=== PATIENT | female | born 1995 | race Caucasian/White ===

== ENCOUNTER 2021-10-01 11:37 | Inpatient (IN) | payer MEDICAID ==
[~2021-10-01] VITALS: Ht 170.2 cm; Wt 145.8 kg
[~2021-10-01 11:37] MED LIST: ALBU8.5H17 IH; ONDA4TAB6 PO
[2021-10-01 14:04] LABS: BASOPHILS % (AUTO) 0.4 % (0-1); EOSINOPHILS % (AUTO) 0.3 % (0-6); HEMATOCRIT 36.8 % (35.0-45.0); HEMOGLOBIN 12.4 g/dl (12.0-16.0); LYMPHOCYTES # (AUTO) 1.9 X10'3 (1.1-4.8); MEAN CORPUSCULAR HGB CONC 33.7 g/dL (33.0-36.5); MEAN PLATELET VOLUME 7.9 FL (7.4-10.4); MONOCYTES # (AUTO) 0.6 X10'3 (0-0.9); MONOCYTES % (AUTO) 6.2 % (2-12); NEUTROPHILS # (AUTO) 6.5 X10'3 (1.8-7.7); NEUTROPHILS % (AUTO) 72.1 % (42-75); PLATELET COUNT 389 X10'3 (140-440); RED CELL DISTRIBUTION WIDTH 13.2 % (11.5-14.5)
[2021-10-01 14:09] LABS: ALANINE AMINOTRANSFERASE 28 U/L (12-78); ALBUMIN 3.7 G/DL (3.4-5.0); ALBUMIN/GLOBULIN RATIO 0.9 (1.1-1.5); ALKALINE PHOSPHATASE 57 IU/L (46-116); ANION GAP 10 (8-16); ASPARTATE AMINO TRANSFERASE 16 U/L (10-37); BILIRUBIN,TOTAL 0.8 MG/DL (0.1-1.0); BLOOD UREA NITROGEN 12 MG/DL (7-18); CALCIUM 9.2 MG/DL (8.5-10.1); CHLORIDE 105 MMOL/L (99-107); GLUCOSE 89 MG/DL (70-104); POTASSIUM 3.3 MMOL/L (3.5-5.1); SODIUM 142 MMOL/L (135-145); TOTAL CARBON DIOXIDE 27.1 MMOL/L (24-32); TOTAL PROTEIN 7.7 G/DL (6.4-8.2); eGFR 89 ML/MIN
[2021-10-01 14:56] LABS: URINE HCG NEGATIVE (NEG)
[2021-10-01 15:05] LABS: URINE AMPHETAMINE SCREEN NEGATIVE (Neg); URINE BARBITUATE SCREEN NEGATIVE (Neg); URINE BENZODIAZEPINES SCREEN NEGATIVE (Neg); URINE CANNABINOID SCREEN NEGATIVE (Neg); URINE COCAINE SCREEN NEGATIVE (Neg); URINE METHADONE SCREEN NEGATIVE (Neg); URINE OPIATE SCREEN NEGATIVE (Neg); URINE PHENCYCLIDINE SCREEN NEGATIVE (Neg)
[2021-10-01] MEDS ORDERED: ondansetron 4mg rapidly disintigrating tab PO ONE (15:25)
--- NOTE | 2021-10-01 15:35 | NUR ---
TELE MED REQUEST PUT IN @ 0889
[2021-10-01] MEDS ORDERED: NORMAL SALINE IV SCH ×2 (16:00→16:03)
[2021-10-01] MEDS ORDERED: ACYCLOVIR IV SCH ×2 (16:00→16:03)
[2021-10-01] MEDS ORDERED: iohexol 350MG/ML 100ml bottle IV ONE (16:05)
[2021-10-01] MEDS ORDERED: NORMAL SALINE IV ONE (16:05)
[2021-10-01] MEDS ORDERED: ACYCLOVIR IV ONE (16:05)
[2021-10-01] MEDS ORDERED: fentaNYL/PF 50MCG/1 ML 2ML syringe IV ONE (17:00)
[2021-10-01] MEDS ORDERED: NORE1PAT7 TOP (17:18)
[2021-10-01] MEDS ORDERED: magnesium 4gm in 100ml NS 100 ML IV PRN (17:40)
[2021-10-01] MEDS ORDERED: mag hydrox/Alum hydrox/simeth 30ml oral suspension PO PRN (17:40)
[2021-10-01] MEDS ORDERED: potassium Cl 20 mEq SR tablet PO PRN (17:40)
[2021-10-01] MEDS ORDERED: potassium CL 10mEq/100ml bag 100 ML IV PRN (17:40)
[2021-10-01] MEDS ORDERED: magnesium 2GM in 50ml NS 50 ML IV PRN (17:40)
[2021-10-01] MEDS ORDERED: proCHLORperazine 10 MG/2 ml inj IV ONE (18:20)
[2021-10-01 18:33] LABS: MAGNESIUM 2.2 MG/DL (1.5-2.4)
[2021-10-01] MEDS: docusate sod 100mg capsule PO SCH (20:00)
[2021-10-01] MEDS: K and/or MAG REPLACEMENT MC SCH (20:00)
[2021-10-01] MEDS: levetiracetam inj 1,000 MG in normal saline 100ml IV soln 100 ML IV SCH (20:00)
[2021-10-02 01:30] LABS: BASOPHILS % (AUTO) 0.4 % (0-1); EOSINOPHILS # (AUTO) 0.1 X10'3 (0-0.9); HEMATOCRIT 32.6 % (35.0-45.0); HEMOGLOBIN 11.2 g/dl (12.0-16.0); LYMPHOCYTES # (AUTO) 2.6 X10'3 (1.1-4.8); LYMPHOCYTES % (AUTO) 32.3 % (21-51); MEAN CORPUSCULAR HEMOGLOBIN 31.7 PG (27.0-31.0); MEAN CORPUSCULAR HGB CONC 34.4 g/dL (33.0-36.5); MEAN CORPUSCULAR VOLUME 92.4 FL (78-98); MEAN PLATELET VOLUME 8.2 FL (7.4-10.4); MONOCYTES # (AUTO) 0.6 X10'3 (0-0.9); MONOCYTES % (AUTO) 7.3 % (2-12); NEUTROPHILS # (AUTO) 4.8 X10'3 (1.8-7.7); PLATELET COUNT 333 X10'3 (140-440); RED BLOOD COUNT 3.52 X10'6 (4.20-5.60); RED CELL DISTRIBUTION WIDTH 12.8 % (11.5-14.5); WHITE BLOOD COUNT 8.2 X10'3 (4.5-11.0)
[2021-10-02 01:43] LABS: ALANINE AMINOTRANSFERASE 23 U/L (12-78); ALBUMIN 3.2 G/DL (3.4-5.0); ALBUMIN/GLOBULIN RATIO 0.9 (1.1-1.5); ALKALINE PHOSPHATASE 51 IU/L (46-116); ANION GAP 12 (8-16); ASPARTATE AMINO TRANSFERASE 16 U/L (10-37); BLOOD UREA NITROGEN 12 MG/DL (7-18); BUN/CREATININE RATIO 14.8 (6.6-38.0); CALCIUM 8.4 MG/DL (8.5-10.1); CHLORIDE 106 MMOL/L (99-107); CHOLESTEROL 190 MG/DL (0-200); CREATININE 0.81 MG/DL (0.40-0.90); GLUCOSE 94 MG/DL (70-104); HDL CHOLESTEROL 94 MG/DL (35-60); LDL CHOLESTEROL 81 MG/DL (50-100); MAGNESIUM 2.1 MG/DL (1.5-2.4); POTASSIUM 3.3 MMOL/L (3.5-5.1); SODIUM 140 MMOL/L (135-145); TOTAL CARBON DIOXIDE 22.3 MMOL/L (24-32); TOTAL PROTEIN 6.7 G/DL (6.4-8.2); TRIGLYCERIDES 142 MG/DL (20-135); eGFR 88 ML/MIN
[2021-10-02] MEDS: NORMAL SALINE IV SCH ×3 (02:48→17:58)
[2021-10-02] MEDS: ACYCLOVIR IV SCH ×3 (02:48→17:58)
[2021-10-02] MEDS: acetaminophen 325mg tablet PO PRN ×2 (04:15→15:27)
[2021-10-02] MEDS: ondansetron/PF 4mg/2ml inj IV PRN (04:16)
--- NOTE | 2021-10-02 07:18 | NUR ---
paged dr dickey to verify the keppra medication and also patient tele neuro notes which states that patient need to be transfered .
--- NOTE | 2021-10-02 07:36 | NUR ---
repaged dr dickey at this time.
[2021-10-02] MEDS: levetiracetam inj 1,000 MG in normal saline 100ml IV soln 100 ML IV SCH ×2 (08:00→19:29)
[2021-10-02] MEDS: K and/or MAG REPLACEMENT MC SCH ×2 (08:00→20:00)
--- NOTE | 2021-10-02 08:50 | NUR ---
SPOKE WITH DR PACK REGARDING KEPPRA ORDER. TO REVIEW CHART, RN TO HOLD MEDICATION AT THIS TIME (SEE EMAR).
--- NOTE | 2021-10-02 09:08 | NUR ---
SPOKE TO DR THOMAS REGARDING PT STATUS AND ALSO DISCUSSED THE REPORT FROM JAROD HARDEN WHICH SUGGESTED PT NEED TO BE TRANSFERED OUT ,INFORMED THE PROVIDER THAT PT IS C/O MIGRAINE HEADACHE ,PT HAS HX OF MIGRANINE AND REQUESTING FOR COCKTAIL FOR HEADACHE ,ALSO INFORME DTHAT PT HAS A BED UPSTAIRS AND ALL THE TEST RESULT IS RESULTED, PER MD GIVE ATIVIAN 0.5 MG OF ATIVIAN IV ONCE,HALODOL 5 MG IM ONCE AND BENEDRYL 25 MG IV ONCE AND ALSO ADMIN THE KEPPRA.
[2021-10-02] MEDS ORDERED: diphenhydrAMINE 50 mg/ml inj IV ONE (09:15)
[2021-10-02] MEDS ORDERED: LORazepam 2 mg/ml vial IV ONE (09:15)
[2021-10-02] MEDS ORDERED: haloperidol lactate 5mg/ml inj IM ONE (09:15)
[2021-10-02] MEDS ORDERED: levetiracetam inj 1,000 MG in normal saline 100ml IV soln 100 ML IV SCH (10:00)
[2021-10-02 10:34] VITALS: BP 83/38
[2021-10-02 10:40] VITALS: BP 86/43
[2021-10-02 10:52] VITALS: BP 91/56
[2021-10-02 14:00] VITALS: BP 97/50
[2021-10-02] MEDS: potassium Cl 20 mEq SR tablet PO PRN ×2 (15:26→19:31)
[2021-10-02] MEDS: docusate sod 100mg capsule PO SCH ×2 (15:27→20:00)
--- NOTE | 2021-10-02 16:30 | NUR ---
PAGER ID: [phone] MESSAGE: [phone]. Patient would like to know if she will be discharged home today or if you still plan on doing lumbar puncture. Also, patient is requesting stronger form of pain medication for headache. Anastasiya TONEY [id number]
[2021-10-02] MEDS: normal saline 1000ml 1,000 ML IV SCH (17:58)
[2021-10-02 18:43] LABS: PARTIAL THROMBOPLASTIN TIME 27 SECONDS (22-32)
--- NOTE | 2021-10-02 18:43 | NUR ---
Problems reprioritized. Patient report given, questions answered & plan of care reviewed with Claudy TONEY.
--- NOTE | 2021-10-02 18:44 | NUR ---
Patient a&ox4. VSS. Complains of constant headache pain, relieved with Tylenol. [place] ordered, patient says she has no allergic reaction to norco. Swallowing without difficulty. Turns independently. Skin is intact. Plan of care reviewed with patient.
--- NOTE | 2021-10-02 18:47 | NUR ---
Patient in room MED 307. I have received report from Anastasiya TONEY and had the opportunity to ask questions and assume patient care.
[2021-10-02 19:05] VITALS: BP 120/57
[2021-10-02] MEDS: HYDROcodone/acetaminophen 5mg/325mg tablet PO PRN (19:33)
[2021-10-02 22:15] VITALS: BP 92/55
[2021-10-03] MEDS: NORMAL SALINE IV SCH ×3 (01:34→17:34)
[2021-10-03] MEDS: ACYCLOVIR IV SCH ×3 (01:34→17:34)
[2021-10-03] MEDS: HYDROcodone/acetaminophen 5mg/325mg tablet PO PRN ×5 (01:35→22:59)
[2021-10-03 02:00] VITALS: BP 101/56
[2021-10-03] MEDS: normal saline 1000ml 1,000 ML IV SCH ×3 (03:45→20:21)
[2021-10-03] MEDS: potassium Cl 20 mEq SR tablet PO PRN (03:45)
[2021-10-03 06:00] VITALS: BP 91/50
--- NOTE | 2021-10-03 06:29 | NUR ---
Problems reprioritized. Patient report given, questions answered & plan of care reviewed with Anastasiya TONEY.
--- NOTE | 2021-10-03 06:59 | NUR ---
PAGER ID: [phone] MESSAGE: [phone]. Patient is requesting a stronger form of pain medication, or something that will act more quickly. She says she has taken Toradol before and did not have allergic reactions. Anastasiya TONEY [id number]
[2021-10-03 07:18] LABS: BASOPHILS % (AUTO) 0.5 % (0-1); EOSINOPHILS # (AUTO) 0.1 X10'3 (0-0.9); EOSINOPHILS % (AUTO) 1.6 % (0-6); HEMATOCRIT 30.2 % (35.0-45.0); HEMOGLOBIN 10.3 g/dl (12.0-16.0); LYMPHOCYTES % (AUTO) 33.9 % (21-51); MEAN CORPUSCULAR HEMOGLOBIN 31.8 PG (27.0-31.0); MEAN CORPUSCULAR HGB CONC 34.3 g/dL (33.0-36.5); MEAN CORPUSCULAR VOLUME 92.7 FL (78-98); MONOCYTES # (AUTO) 0.5 X10'3 (0-0.9); NEUTROPHILS # (AUTO) 3.4 X10'3 (1.8-7.7); PLATELET COUNT 286 X10'3 (140-440); RED BLOOD COUNT 3.26 X10'6 (4.20-5.60); RED CELL DISTRIBUTION WIDTH 12.7 % (11.5-14.5)
[2021-10-03 07:31] LABS: ALANINE AMINOTRANSFERASE 20 U/L (12-78); ALBUMIN 2.9 G/DL (3.4-5.0); ALBUMIN/GLOBULIN RATIO 0.9 (1.1-1.5); ALKALINE PHOSPHATASE 48 IU/L (46-116); ANION GAP 8 (8-16); ASPARTATE AMINO TRANSFERASE 13 U/L (10-37); BILIRUBIN,TOTAL 0.6 MG/DL (0.1-1.0); BLOOD UREA NITROGEN 11 MG/DL (7-18); BUN/CREATININE RATIO 15.7 (6.6-38.0); CALCIUM 8.3 MG/DL (8.5-10.1); CHLORIDE 107 MMOL/L (99-107); GLUCOSE 84 MG/DL (70-104); POTASSIUM 4.3 MMOL/L (3.5-5.1); SODIUM 137 MMOL/L (135-145); TOTAL CARBON DIOXIDE 22.1 MMOL/L (24-32); TOTAL PROTEIN 6.2 G/DL (6.4-8.2); eGFR > 90 ML/MIN
[2021-10-03] MEDS: K and/or MAG REPLACEMENT MC SCH ×2 (08:00→20:00)
[2021-10-03] MEDS: docusate sod 100mg capsule PO SCH ×2 (08:11→20:22)
[2021-10-03] MEDS: levetiracetam inj 1,000 MG in normal saline 100ml IV soln 100 ML IV SCH ×2 (08:12→20:22)
[2021-10-03] MEDS: ketorolac trometh. 30mg/ml inj. IV PRN ×3 (08:12→20:22)
[2021-10-03] MEDS ORDERED: LIDOcaine 1% (10mg/ml)w/preservative injection 20ml MDV SQ ONE (09:40)
[2021-10-03 10:00] VITALS: BP 98/59
--- NOTE | 2021-10-03 13:12 | NUR ---
PAGER ID: [phone] MESSAGE: [phone]. Patient is reporting right upper arm numbness. She does say she received IM injection in ED, I believe it was Haldol. She is able to move arm and there are no other significant changes. Anastasiya [id number]
--- NOTE | 2021-10-03 15:22 | NUR ---
Patient in procedure for 1400 vitals
[2021-10-03 16:16] LABS: GLUCOSE,CSF 52 MG/DL (40-75); TOTAL PROTEIN,CSF 32 MG/DL (15-45)
[2021-10-03 16:56] LABS: APPEARANCE,CSF CLEAR
[2021-10-03 16:57] LABS: CSF RBC 1 /CU MM (0); CSF SUPERNATANT COLOR COLORLESS; CSF VOLUME 13.5 ML; CSF WBC CT 0 /CU MM (0-5); TUBE# COUNTED 4
[2021-10-03 16:58] LABS: APPEARANCE,CSF CLEAR; CSF RBC 3 /CU MM (0); CSF SUPERNATANT COLOR COLORLESS; CSF VOLUME 13.5 ML; CSF WBC CT 0 /CU MM (0-5); TUBE# COUNTED 1
--- NOTE | 2021-10-03 17:44 | NUR ---
Patient is a&ox4. VSS. Complains of constant headache pain, relieved with prn norco and toradol. Swallows without difficulty. Taken for lumbar puncture. Patient educated on laying flat with HOB no greater than 15 degrees for 4 hours, although she says she was told by MD it only had to be 2 hours. EEG done. Patient was able to ambulate to bathroom/gurney with sba. Plan of care reviewed with patient and family at bedside.
[2021-10-03 18:06] VITALS: BP 110/68
--- NOTE | 2021-10-03 18:15 | NUR ---
Problems reprioritized. Patient report given, questions answered & plan of care reviewed with Willy TONEY. Addendum: 10/03/21 at 1817 by Anastasiya Vidal RN Report given to Claudy TONEY, not Willy.
--- NOTE | 2021-10-03 18:21 | NUR ---
Patient in room MED 307. I have received report from Anastasiya TONEY and had the opportunity to ask questions and assume patient care.
[2021-10-03 22:08] VITALS: BP 98/53
[2021-10-04 02:11] VITALS: BP 87/47
[2021-10-04] MEDS: ketorolac trometh. 30mg/ml inj. IV PRN ×4 (02:27→23:18)
[2021-10-04] MEDS: ACYCLOVIR IV SCH ×2 (02:27→10:04)
[2021-10-04] MEDS: NORMAL SALINE IV SCH ×2 (02:27→10:04)
[2021-10-04 06:30] VITALS: BP 93/50
[2021-10-04 06:37] LABS: BASOPHILS % (AUTO) 0.3 % (0-1); EOSINOPHILS # (AUTO) 0.1 X10'3 (0-0.9); EOSINOPHILS % (AUTO) 2.2 % (0-6); HEMATOCRIT 29.8 % (35.0-45.0); HEMOGLOBIN 10.3 g/dl (12.0-16.0); LYMPHOCYTES # (AUTO) 2.1 X10'3 (1.1-4.8); LYMPHOCYTES % (AUTO) 38.5 % (21-51); MEAN CORPUSCULAR HEMOGLOBIN 32.3 PG (27.0-31.0); MEAN CORPUSCULAR HGB CONC 34.6 g/dL (33.0-36.5); MEAN CORPUSCULAR VOLUME 93.3 FL (78-98); MEAN PLATELET VOLUME 8.1 FL (7.4-10.4); MONOCYTES # (AUTO) 0.4 X10'3 (0-0.9); MONOCYTES % (AUTO) 6.6 % (2-12); NEUTROPHILS # (AUTO) 2.8 X10'3 (1.8-7.7); NEUTROPHILS % (AUTO) 52.4 % (42-75); PLATELET COUNT 274 X10'3 (140-440); RED BLOOD COUNT 3.19 X10'6 (4.20-5.60); RED CELL DISTRIBUTION WIDTH 12.8 % (11.5-14.5); WHITE BLOOD COUNT 5.4 X10'3 (4.5-11.0)
--- NOTE | 2021-10-04 06:40 | NUR ---
Patient in room MED 307. I have received report from DAWNA Loco and had the opportunity to ask questions and assume patient care.
[2021-10-04 06:49] LABS: ALANINE AMINOTRANSFERASE 15 U/L (12-78); ALBUMIN 2.9 G/DL (3.4-5.0); ALBUMIN/GLOBULIN RATIO 0.9 (1.1-1.5); ALKALINE PHOSPHATASE 47 IU/L (46-116); ANION GAP 6 (8-16); ASPARTATE AMINO TRANSFERASE 13 U/L (10-37); BILIRUBIN,TOTAL 0.7 MG/DL (0.1-1.0); BLOOD UREA NITROGEN 12 MG/DL (7-18); CALCIUM 8.3 MG/DL (8.5-10.1); CHLORIDE 107 MMOL/L (99-107); GLUCOSE 82 MG/DL (70-104); MAGNESIUM 1.9 MG/DL (1.5-2.4); SODIUM 137 MMOL/L (135-145); TOTAL CARBON DIOXIDE 23.8 MMOL/L (24-32); TOTAL PROTEIN 6.3 G/DL (6.4-8.2); eGFR > 90 ML/MIN
--- NOTE | 2021-10-04 06:55 | NUR ---
Problems reprioritized. Patient report given, questions answered & plan of care reviewed with Kirsten RN.
[2021-10-04] MEDS: K and/or MAG REPLACEMENT MC SCH ×2 (08:00→20:00)
[2021-10-04] MEDS: normal saline 1000ml 1,000 ML IV SCH ×2 (08:58→21:00)
[2021-10-04] MEDS: docusate sod 100mg capsule PO SCH ×2 (08:58→21:00)
[2021-10-04] MEDS: levetiracetam inj 1,000 MG in normal saline 100ml IV soln 100 ML IV SCH (09:00)
[2021-10-04] MEDS ORDERED: magnesium hydroxide 30ml (MOM) UD suspension PO ONE (09:05)
[2021-10-04 10:00] VITALS: BP 104/60
[2021-10-04] MEDS ORDERED: magnesium hydroxide 30ml (MOM) UD suspension PO PRN (10:00)
[2021-10-04] MEDS ORDERED: bisacodyl 10mg suppository rectal RC PRN (10:00)
[2021-10-04] MEDS: HYDROcodone/acetaminophen 5mg/325mg tablet PO PRN ×2 (10:03→17:50)
[2021-10-04] MEDS: SUMAtriptan succ. 6 MG/0.5ml vial SQ PRN ×2 (12:41→15:10)
[2021-10-04] MEDS ORDERED: ketorolac trometh. 30mg/ml inj. IV ONE (13:20)
[2021-10-04] MEDS: LORazepam 0.5 MG tablet PO PRN ×2 (13:30→21:00)
[2021-10-04] MEDS ORDERED: ondansetron/PF 4mg/2ml inj IV PRN (15:00)
[2021-10-04] MEDS ORDERED: temazepam 15mg capsule PO PRN (15:00)
[2021-10-04] MEDS: ondansetron/PF 4mg/2ml inj IV PRN (15:08)
[2021-10-04 15:40] VITALS: BP 105/76
[2021-10-04] MEDS ORDERED: mag hydrox/Alum hydrox/simeth 30ml oral suspension PO PRN (17:45)
[2021-10-04 18:20] VITALS: BP 108/75
--- NOTE | 2021-10-04 18:30 | NUR ---
Problems reprioritized. Patient report given, questions answered & plan of care reviewed with DAWNA Loco.
--- NOTE | 2021-10-04 18:57 | NUR ---
Patient in room MED 307. I have received report from Kirsten TONEY and had the opportunity to ask questions and assume patient care.
[2021-10-04] MEDS ORDERED: levetiracetam 250mg tablet PO SCH (20:00)
[2021-10-04] MEDS ORDERED: nortriptyline 10mg capsule PO SCH (21:00)
[2021-10-04 22:00] VITALS: BP 102/65
[2021-10-05 02:00] VITALS: BP 92/50
[2021-10-05] MEDS: HYDROcodone/acetaminophen 5mg/325mg tablet PO PRN ×4 (03:02→20:16)
[2021-10-05] MEDS: normal saline 1000ml 1,000 ML IV SCH (05:52)
[2021-10-05] MEDS: ketorolac trometh. 30mg/ml inj. IV PRN ×3 (06:16→18:06)
[2021-10-05 06:30] VITALS: BP 102/56
--- NOTE | 2021-10-05 06:40 | NUR ---
Patient in room MED 307. I have received report from DAWNA Loco and had the opportunity to ask questions and assume patient care.
[2021-10-05 06:46] LABS: BASOPHILS % (AUTO) 0.4 % (0-1); EOSINOPHILS # (AUTO) 0.1 X10'3 (0-0.9); EOSINOPHILS % (AUTO) 2.3 % (0-6); HEMOGLOBIN 10.6 g/dl (12.0-16.0); LYMPHOCYTES # (AUTO) 2.2 X10'3 (1.1-4.8); LYMPHOCYTES % (AUTO) 38.9 % (21-51); MEAN CORPUSCULAR HEMOGLOBIN 32.4 PG (27.0-31.0); MEAN CORPUSCULAR HGB CONC 35.2 g/dL (33.0-36.5); MEAN PLATELET VOLUME 8.3 FL (7.4-10.4); MONOCYTES # (AUTO) 0.4 X10'3 (0-0.9); MONOCYTES % (AUTO) 6.8 % (2-12); NEUTROPHILS % (AUTO) 51.6 % (42-75); PLATELET COUNT 269 X10'3 (140-440); RED BLOOD COUNT 3.26 X10'6 (4.20-5.60); RED CELL DISTRIBUTION WIDTH 12.6 % (11.5-14.5); WHITE BLOOD COUNT 5.7 X10'3 (4.5-11.0)
--- NOTE | 2021-10-05 06:56 | NUR ---
Problems reprioritized. Patient report given, questions answered & plan of care reviewed with Kirsten RN.
[2021-10-05 07:08] LABS: ALANINE AMINOTRANSFERASE 21 U/L (12-78); ALBUMIN/GLOBULIN RATIO 0.8 (1.1-1.5); ALKALINE PHOSPHATASE 47 IU/L (46-116); ANION GAP 10 (8-16); ASPARTATE AMINO TRANSFERASE 17 U/L (10-37); BILIRUBIN,TOTAL 0.6 MG/DL (0.1-1.0); BLOOD UREA NITROGEN 14 MG/DL (7-18); BUN/CREATININE RATIO 20.3 (6.6-38.0); CALCIUM 8.2 MG/DL (8.5-10.1); CHLORIDE 106 MMOL/L (99-107); CREATININE 0.69 MG/DL (0.40-0.90); GLUCOSE 78 MG/DL (70-104); MAGNESIUM 2.2 MG/DL (1.5-2.4); POTASSIUM 4.3 MMOL/L (3.5-5.1); SODIUM 138 MMOL/L (135-145); TOTAL CARBON DIOXIDE 21.7 MMOL/L (24-32); TOTAL PROTEIN 6.6 G/DL (6.4-8.2); eGFR > 90 ML/MIN
[2021-10-05] MEDS: K and/or MAG REPLACEMENT MC SCH ×2 (08:00→20:00)
[2021-10-05] MEDS: docusate sod 100mg capsule PO SCH ×2 (09:42→20:14)
[2021-10-05 10:00] VITALS: BP 108/68
[2021-10-05 14:00] VITALS: BP 103/71
[2021-10-05] MEDS: ondansetron/PF 4mg/2ml inj IV PRN (14:06)
[2021-10-05] MEDS: methylPREDNISolone sod succ 125mg/2ml vial IV SCH (14:16)
[2021-10-05 18:00] VITALS: BP 100/58
--- NOTE | 2021-10-05 19:10 | NUR ---
Problems reprioritized. Patient report given, questions answered & plan of care reviewed with DAWNA Mariee.
[2021-10-05] MEDS: amitriptyline 25mg tablet PO SCH (20:15)
[2021-10-05] MEDS: LORazepam 0.5 MG tablet PO PRN (21:28)
[2021-10-05 22:00] VITALS: BP 97/54
[2021-10-06] MEDS: ketorolac trometh. 30mg/ml inj. IV PRN ×4 (00:05→19:41)
--- NOTE | 2021-10-06 01:00 | NUR ---
Report called, pt notified of plan of care and the pending transfer to surgical unit. Pt refused a this time stated that she wants to sleep and asked why since she is being transferred out of the hospital tomorrow. will come back to asses her readyness
--- NOTE | 2021-10-06 01:30 | NUR ---
Pt transferred via bed to room 355B, Pt gathered her brlongins and placed on the bed by pt before transfer by 2 RNs. Bed placed in the room and nurse from floor at bedside
--- NOTE | 2021-10-06 01:45 | NUR ---
Pt asked to come jignesh in a few minutes. She is getting herself ready.
--- NOTE | 2021-10-06 01:46 | NUR ---
Pt brought to room 355B via bed. call light in reach, pt c/o migraine, refuses assessment or any interventions at this time. Pt did not want to be transferred at night. belongings brought over by Rn in large backpack and placed on bedside table. pt requests all lights off and door shut. Addendum: 10/06/21 at 0149 by Titus Sevilla RN Amended: Links added.
[2021-10-06] MEDS: HYDROcodone/acetaminophen 5mg/325mg tablet PO PRN ×3 (02:01→09:44)
[2021-10-06] MEDS: LORazepam 0.5 MG tablet PO PRN (02:02)
[2021-10-06 02:13] VITALS: BP 99/44
[2021-10-06 05:46] LABS: BASOPHILS % (AUTO) 0.3 % (0-1); EOSINOPHILS % (AUTO) 0 % (0-6); HEMATOCRIT 34.4 % (35.0-45.0); HEMOGLOBIN 11.8 g/dl (12.0-16.0); LYMPHOCYTES % (AUTO) 10.9 % (21-51); MEAN CORPUSCULAR HEMOGLOBIN 31.8 PG (27.0-31.0); MEAN CORPUSCULAR HGB CONC 34.3 g/dL (33.0-36.5); MEAN CORPUSCULAR VOLUME 92.7 FL (78-98); MEAN PLATELET VOLUME 8.9 FL (7.4-10.4); MONOCYTES # (AUTO) 0.2 X10'3 (0-0.9); MONOCYTES % (AUTO) 1.8 % (2-12); NEUTROPHILS # (AUTO) 7.7 X10'3 (1.8-7.7); PLATELET COUNT 324 X10'3 (140-440); RED BLOOD COUNT 3.71 X10'6 (4.20-5.60); RED CELL DISTRIBUTION WIDTH 12.4 % (11.5-14.5); WHITE BLOOD COUNT 8.9 X10'3 (4.5-11.0)
--- NOTE | 2021-10-06 06:02 | NUR ---
TORODAL AND NORCO GIVEN FOR MIGRAINE. Addendum: 10/06/21 at 0605 by Titus Sevilla RN Amended: Links added.
[2021-10-06 06:23] LABS: ALANINE AMINOTRANSFERASE 25 U/L (12-78); ALBUMIN 3.4 G/DL (3.4-5.0); ALBUMIN/GLOBULIN RATIO 0.9 (1.1-1.5); ALKALINE PHOSPHATASE 53 IU/L (46-116); ANION GAP 11 (8-16); ASPARTATE AMINO TRANSFERASE 16 U/L (10-37); BILIRUBIN,TOTAL 0.6 MG/DL (0.1-1.0); BLOOD UREA NITROGEN 14 MG/DL (7-18); BUN/CREATININE RATIO 20.3 (6.6-38.0); CHLORIDE 103 MMOL/L (99-107); CREATININE 0.69 MG/DL (0.40-0.90); GLUCOSE 122 MG/DL (70-104); POTASSIUM 4.2 MMOL/L (3.5-5.1); SODIUM 136 MMOL/L (135-145); TOTAL CARBON DIOXIDE 21.9 MMOL/L (24-32); TOTAL PROTEIN 7.3 G/DL (6.4-8.2); eGFR > 90 ML/MIN
--- NOTE | 2021-10-06 06:25 | NUR ---
Problems reprioritized. Patient report given, questions answered & plan of care reviewed with MARIAM TONEY. Addendum: 10/06/21 at 0626 by Titus Sevilla RN Amended: Links added.
[2021-10-06 07:34] VITALS: BP 86/45
[2021-10-06] MEDS: K and/or MAG REPLACEMENT MC SCH ×2 (07:47→19:42)
[2021-10-06] MEDS: docusate sod 100mg capsule PO SCH ×2 (07:55→19:42)
[2021-10-06] MEDS: methylPREDNISolone sod succ 125mg/2ml vial IV SCH (07:55)
[2021-10-06 12:09] VITALS: BP 113/16
[2021-10-06] MEDS: oxyCODONE/APAP 5-325mg tablet PO PRN ×2 (13:09→18:17)
--- NOTE | 2021-10-06 14:14 | NUR ---
Initial: Pt admitted w/ 3-day history of left-sided upper and lower extremity paresis and paresthesias as well as slurred speech per EMR. Per Neurologist consultation the pt is recommended to be transferred to a higher level of neurology care. Pt currently on Regular diet and able to feed self w/ mostly 75-100% intake of meals meeting needs at this time. Pt noted to be complaining of migraines. [facility] 10/04 receiving routine colace. No nutrition intervention implemented at this time, will continue to monitor. Recs: 1. Continue Regular diet as tolerated 2. Bowel care per rx 3. Weekly wts Addendum: 10/06/21 at [address] Amended: Links added.
[2021-10-06] MEDS ORDERED: METH125V10 IV (15:58)
[2021-10-06] MEDS ORDERED: PER5325T PO (15:58)
[2021-10-06] MEDS ORDERED: HYDR-3964 PO (15:58)
[2021-10-06] MEDS ORDERED: AMIT25TA9 PO (15:58)
[2021-10-06] MEDS ORDERED: KETO30VI IV (15:58)
--- NOTE | 2021-10-06 17:25 | NUR ---
Spoke with Puneet at [facility]. He is aware of the negative covid test that has been faxed through and he will be calling back to the floor once there is an assignment for this patient. Addendum: 10/06/21 at 1727 by Maren Bowie RN phone number [phone]
--- NOTE | 2021-10-06 18:19 | NUR ---
Problems reprioritized. Patient report given, questions answered & plan of care reviewed with DAWNA Bravo.
[2021-10-06] MEDS: ondansetron/PF 4mg/2ml inj IV PRN (19:16)
[2021-10-06 20:00] VITALS: BP 107/57
[2021-10-06] MEDS: amitriptyline 25mg tablet PO SCH (20:58)
--- NOTE | 2021-10-06 21:45 | NUR ---
ATTEMPTING TO MAKE TRANSFER ARRANGEMENTS TO [facility] IN [place]. [facility] CALLED FIRST: NO AMBULANCE AVAILABLE TONIGHT. [facility] THEN NOTIFIED: NO GROUND AVAILABLE TONIGHT. CALLED [facility]: DECLINED DUE TO WEATHER. RE-CALLED [facility]: DECLINED DUE TO WEATHER. DID MAKE ARRANGEMENTS FOR GROUND TRANSPORT IN THE MORNING: TENTATIVE TIME OF 0800. CALLED THE NURSING SOLID WASTE ANALYST APPROVED REACHING OUT TO OUT OF AREA AIR TRANSPORT TO ATTEMPT TO GET PT TRANSFERRED TONIGHT. [facility] [place] CALLED: UNAVAILABLE/DECLINED TONIGHT. [facility] CALLED BACK: THE BRIM CUTTER WILL BE RE-EVALUATING THE WEATHER THROUGHOUT THE NIGHT TO SEE IF PT CAN BE TRANSFERRED TONIGHT. [facility] NOTIFIED OF POSSIBLE TRANSPORT COMPLIANCE INVESTIGATOR IN THE MORNING. AWAITING INFORMATION TO SEE IF PT WILL BE ABLE TO KEEP HER BED.
[2021-10-06] MEDS ORDERED: HYDROmorphone inj. 0.5 MG/0.5 ML DISP.SYRIN IV PRN (22:20)
[2021-10-06] MEDS ORDERED: ondansetron/PF 4mg/2ml inj IV PRN (22:20)
[2021-10-06 23:00] VITALS: BP 112/64
--- NOTE | 2021-10-06 23:00 | NUR ---
[facility] HERE FOR BONE WORKER. ALLREADY CALLED REPORT TO [facility]. REPORT GIVEN TO RE[facility]. PT READY FOR TRANSPORT.
[2021-10-07] MEDS ORDERED: methylPREDNISolone sod succ 125mg/2ml vial IV SCH (08:00)
[2021-10-07] MEDS ORDERED: predniSONE 20 mg tablet PO SCH (08:30)
[2021-10-08] MEDS ORDERED: NORELGESTROMIN TP SCH (10:00)
[2021-10-08] MEDS ORDERED: ETHIN ESTRADIOL TP SCH (10:00)
== END 2021-10-06 23:30 | disposition short-term general hospital (02) | DRG 44 ==
LOC: ER 11:38 → ED HOLD 17:44 → MED 3N 10-02 10:00 → SUR 3N 10-06 01:43
PROVIDERS: ADMIT Family Medicine; ATTEND Family Medicine
PROC: 009U3ZZ Drainage of Spinal Canal, Percutaneous Approach (ICD-10-PCS; principal; 2021-10-03)
PROC: B01B1ZZ Fluoroscopy of Spinal Cord using Low Osmolar Contrast (ICD-10-PCS; 2021-10-03)
PROC: 4A10X4Z Monitoring of Central Nervous Electrical Activity, External Approach (ICD-10-PCS; 2021-10-03)
DX: I60.9 Nontraumatic subarachnoid hemorrhage, unspecified (principal); R56.9 Unspecified convulsions; D64.9 Anemia, unspecified; E87.6 Hypokalemia; G43.909 Migraine, unspecified, not intractable, without status migrainosus; Z20.822 Contact with and (suspected) exposure to COVID-19; G62.9 Polyneuropathy, unspecified; R47.1 Dysarthria and anarthria; F41.1 Generalized anxiety disorder; R00.2 Palpitations; Z80.8 Family history of malignant neoplasm of other organs or systems; Z82.0 Family history of epilepsy and other diseases of the nervous system; Z83.3 Family history of diabetes mellitus; Z88.5 Allergy status to narcotic agent
CPT/HCPCS: 36415; 70450; 70496; 70498; 70544; 70551; 71045; 72141; 80053; 80061; 80305; 81025; 82945; 83605; 83735; 84145; 84157; 84443; 85025; 85610; 85651; 85730; 87015; 87070; 87081; 87635; 89051; 92508; 92616; 95816; 96372; 96374; 96375; 97116; 97163; 97530; 99291; G0378; J0133; J0780; J1170; J1200; J1630; J1885; J1953; J2060; J2405; J2930; J3010; J3030; J3490; J7030; Q9967

== ENCOUNTER 2022-01-26 19:45 | Emergency (ER) | payer MEDICAID ==
[~2022-01-26] VITALS: Ht 172.7 cm; Wt 63.6 kg
[~2022-01-26 19:45] MED LIST changes: -ALBU8.5H17 IH; +AMIT25TA9 PO; +HYDR-3964 PO; +KETO30VI IV; +METH125V10 IV; +NORE1PAT7 TOP; -ONDA4TAB6 PO; +PER5325T PO
[2022-01-26 20:22] LABS: CLARITY,URINE CLEAR (Clear); COLOR,URINE YELLOW (Yellow); GLUCOSE, URINE NEGATIVE (Neg); KETONES,URINE NEGATIVE (Neg); LEUKOCYTE ESTERASE ,URINE NEGATIVE (Neg); NITRITES, URINE NEGATIVE (Neg); OCCULT BLOOD,URINE SMALL (Neg); PROTEIN,URINE NEGATIVE (Neg); UROBILINOGEN,URINE 0.2 E.U/dL (0.2-1.0)
[2022-01-26 20:23] LABS: URINE HCG NEGATIVE (NEG)
[2022-01-26 20:25] LABS: BASOPHILS % (AUTO) 0.4 % (0-1); EOSINOPHILS % (AUTO) 0.3 % (0-6); HEMATOCRIT 35.3 % (35.0-45.0); HEMOGLOBIN 11.8 g/dl (12.0-16.0); LYMPHOCYTES # (AUTO) 2.8 X10'3 (1.1-4.8); LYMPHOCYTES % (AUTO) 32.5 % (21-51); MEAN CORPUSCULAR HEMOGLOBIN 30.3 PG (27.0-31.0); MEAN CORPUSCULAR HGB CONC 33.5 g/dL (33.0-36.5); MEAN CORPUSCULAR VOLUME 90.7 FL (78-98); MEAN PLATELET VOLUME 7.5 FL (7.4-10.4); MONOCYTES # (AUTO) 0.5 X10'3 (0-0.9); NEUTROPHILS # (AUTO) 5.3 X10'3 (1.8-7.7); NEUTROPHILS % (AUTO) 60.8 % (42-75); PLATELET COUNT 422 X10'3 (140-440); RED BLOOD COUNT 3.89 X10'6 (4.20-5.60); RED CELL DISTRIBUTION WIDTH 12.5 % (11.5-14.5); WHITE BLOOD COUNT 8.7 X10'3 (4.5-11.0)
[2022-01-26 20:29] LABS: URINE AMPHETAMINE SCREEN NEGATIVE (Neg); URINE BARBITUATE SCREEN NEGATIVE (Neg); URINE BENZODIAZEPINES SCREEN NEGATIVE (Neg); URINE CANNABINOID SCREEN NEGATIVE (Neg); URINE COCAINE SCREEN NEGATIVE (Neg); URINE METHADONE SCREEN NEGATIVE (Neg); URINE OPIATE SCREEN NEGATIVE (Neg); URINE PHENCYCLIDINE SCREEN NEGATIVE (Neg)
[2022-01-26 20:30] LABS: UA COLLECTION TYPE CLN CATCH MIDSTREAM
[2022-01-26 20:32] LABS: BACTERIA,URINE FEW /HPF (Neg); WBC,URINE 0-4 /HPF (0-4)
[2022-01-26 20:33] LABS: MUCUS STRANDS FEW /LPF (Neg); SQUAMOUS EPITHELIAL CELL,UR FEW /LPF (FEW)
[2022-01-26 20:39] LABS: ALANINE AMINOTRANSFERASE 24 U/L (12-78); ALBUMIN 3.4 G/DL (3.4-5.0); ALBUMIN/GLOBULIN RATIO 0.9 (1.1-1.5); ALKALINE PHOSPHATASE 43 IU/L (46-116); ANION GAP 11 (8-16); ASPARTATE AMINO TRANSFERASE 19 U/L (10-37); BILIRUBIN,TOTAL 0.9 MG/DL (0.1-1.0); BLOOD UREA NITROGEN 9 MG/DL (7-18); BUN/CREATININE RATIO 13.4 (6.6-38.0); CALCIUM 8.9 MG/DL (8.5-10.1); CHLORIDE 103 MMOL/L (99-107); CREATININE 0.67 MG/DL (0.40-0.90); GLUCOSE 95 MG/DL (70-104); POTASSIUM 3.4 MMOL/L (3.5-5.1); SODIUM 138 MMOL/L (135-145); TOTAL CARBON DIOXIDE 24.5 MMOL/L (24-32); TOTAL PROTEIN 7.1 G/DL (6.4-8.2); eGFR > 90 ML/MIN
[2022-01-26] MEDS ORDERED: LORazepam 1 MG tablet PO ONE (21:45)
[2022-01-26 21:55] LABS: ETHANOL < 0.010 GM/DL (0.0-0.010)
--- NOTE | 2022-01-26 22:00 | NUR ---
Received patient from main ER. Pleasant and cooperative; changed into green scrubs and inventory completed by PCT.
--- NOTE | 2022-01-26 23:15 | NUR ---
Packet sent to [facility].
--- NOTE | 2022-01-26 23:21 | NUR ---
Patient sleeping; even non labored respiration and no apparent distress.
--- NOTE | 2022-01-27 01:33 | NUR ---
Patient sleeping; observed self repositioning and no apparent distress.
--- NOTE | 2022-01-27 03:40 | NUR ---
Patient sleeping; no distress observed and continues to self reposition.
--- NOTE | 2022-01-27 05:29 | NUR ---
Patient woke up for vitals; remains pleasant and cooperative.
[2022-01-27] MEDS ORDERED: elavil PO (05:56)
--- NOTE | 2022-01-27 07:00 | NUR ---
Pt resting comfortably, respirations even and unlabored.
--- NOTE | 2022-01-27 09:00 | NUR ---
Pt sleeping comfortably, respirations even and unlabored. Pt declined her breakfast. Pt was tearful upon greeting. When asked about suicidal thoughts pt states "I have more thoughts just laying here then I did at home." Pt feels she would be safe if discharged, "I just want to go home to my three kids." Pt denies H/I, A/VH.
--- NOTE | 2022-01-27 11:05 | NUR ---
Pt lying in bed awake, no behaviors to report. Respirations even and unlabored.
--- NOTE | 2022-01-27 13:05 | NUR ---
Pt sitting up in bed, refused lunch. Drank her tea.
--- NOTE | 2022-01-27 14:51 | NUR ---
Pt on phone, trying to contact resources to assist in a safe discharge plan. Pt requested a snack. She did not eat breakfast or lunch.
--- NOTE | 2022-01-27 16:49 | NUR ---
Pt waiting for discharge paperwork. Pt slightly anxious as she wants to go home to her kids.
--- NOTE | 2022-01-27 17:35 | NUR ---
DISCHARGE NOTE: Patient discharged from unit at 1700. Pt left with all personal belonings. Pt dishcarge instructions wer reviewed. Pt will follow up with [facility]. Pt veralized understanding. Pt was A&Ox4. Pt was slightly irritated because her ride was here, but discharge paperwork hadn't been completed. "I never wanted to come here anyway."
[2022-01-27 17:38] VITALS: BP 96/62
== END 2022-01-27 17:00 | disposition home or self-care (01) ==
LOC: ER 19:46
DX: R45.851 Suicidal ideations (principal); Z20.822 Contact with and (suspected) exposure to COVID-19; F32.A Depression, unspecified; F17.200 Nicotine dependence, unspecified, uncomplicated; Z90.89 Acquired absence of other organs; Z72.89 Other problems related to lifestyle; Z88.5 Allergy status to narcotic agent; Z88.8 Allergy status to other drugs, medicaments and biological substances; Z79.899 Other long term (current) drug therapy
CPT/HCPCS: 36415; 80053; 80305; 80320; 81001; 81025; 84443; 85025; 87635; 99285; C9803